=== PATIENT | female | born 1955 | race Hispanic/Latino ===

== ENCOUNTER → 2020-02-02 | Outpatient (CLI) | payer OTHER ==
[~2020-02-02] MED LIST: ENAL10TA18 PO; HYDR25TA PO; REGADENOSON 0.4 MG/5 ML PF SYG IVP SCH
== END | disposition home or self-care (01) ==
LOC: SHCH 07:41
PROVIDERS: ATTEND Internal Medicine Cardiovascular Disease
DX: I10 Essential (primary) hypertension (principal); I25.10 Atherosclerotic heart disease of native coronary artery without angina pectoris
CPT/HCPCS: 78452; 93017; 96374; A9500 ×2; J2785

== ENCOUNTER 2020-07-29 08:15 | Day surgery (SDC) | payer OTHER ==
[2020-07-27 14:18] VITALS: BP 184/76
[2020-07-27 15:29] LABS: APPEARANCE,URINE Clear (CLEAR); BILIRUBIN,URINE Negative (NEGATIVE); COLOR,URINE Yellow (YELLOW); GLUCOSE, URINE (UA) Negative (NEGATIVE); KETONES,URINE Negative (NEGATIVE); LEUKOCYTE ESTERASE ,URINE Negative (NEGATIVE); NITRATE,URINE Negative (NEGATIVE); OCCULT BLOOD,URINE Negative (NEGATIVE); PROTEIN,URINE Negative (NEGATIVE)
[2020-07-27 15:58] LABS: BASOPHILS % (AUTO) 0.5 % (0.0-5.0); EOSINOPHILS % (AUTO) 1.4 % (0.0-8.0); HEMATOCRIT 38.7 % (36-48); LYMPHOCYTES % (AUTO) 15.7 % (21.0-51.0); MEAN CORPUSCULAR HEMOGLOBIN 27.3 pg (27.0-33.0); MEAN CORPUSCULAR HGB CONC 31.3 g/dL (32.0-36.0); MEAN CORPUSCULAR VOLUME 87.2 fL (79-99); MONOCYTES % (AUTO) 6.5 % (3.0-13.0); NEUTROPHILS % (AUTO) 75.6 % (40.0-77.0); PLATELET COUNT (AUTO) 286 K/uL (130-400); RED BLOOD CELL COUNT(AUTO) 4.44 MIL/uL (4.00-5.50); RED CELL DISTRIBUTION WIDTH 13.2 % (11.0-15.5); WHITE BLOOD COUNT (AUTO) 8.6 K/uL (4.8-10.8)
[2020-07-27 16:08] LABS: CREATININE 0.7 mg/dL (0.5-1.5)
[2020-07-27 16:11] LABS: INR 1.01 (0.85-1.15)
[2020-07-27 16:12] LABS: PARTIAL THROMBOPLASTIN TIME 28.2 SEC (26.3-35.5)
[~2020-07-29] VITALS: Ht 129.5 cm; Wt 116.4 kg
[2020-07-29] VITALS (11 sets, daily range): BP systolic 115–157; BP diastolic 48–79
[~2020-07-29 08:15] MED LIST changes: +ASPI-1443 PO; -ENAL10TA18 PO; +FURO40TA5 PO; -HYDR25TA PO; +LISI30TA4 PO; +METF-444 PO; +METO-391 PO; +OMEG100014 PO; +POTA10TA11 PO; -REGADENOSON 0.4 MG/5 ML PF SYG IVP SCH; +SIMV-43 PO; +SODIUM CHLORIDE 0.9% 1000ML 1,000 ML IV ONE; +TERA2CAP4 PO
[2020-07-29] MEDS ORDERED: SODIUM BICARB 50MEQ 50ML VIAL 50 ML ONE (13:03)
[2020-07-29] MEDS ORDERED: HEPARIN SODIUM 1000UNIT/ML 10ML VIAL ONE (13:04)
[2020-07-29] MEDS ORDERED: MIDAZOLAM HCL 1 MG/ML 2ML VIAL ONE (13:04)
[2020-07-29] MEDS ORDERED: FENTANYL CITRATE PF 50 MCG/1 ML 2ML VIAL ONE (13:04)
[2020-07-29] MEDS ORDERED: NITROGLYCERIN 2 MG/VIAL VIAL IV ONE (13:04)
[2020-07-29] MEDS ORDERED: NICARDIPINE HCL 25 MG/10 ML ML IV ONE (13:04)
[2020-07-29] MEDS ORDERED: IOHEXOL 350 MG/ML 100ML INFUS..BTL IV ONE (13:04)
[2020-07-29] MEDS ORDERED: LIDOCAINE HCL 2% 20ML ONE (13:04)
[2020-07-29] MEDS ORDERED: LABETALOL 20 MG/4 ML DISP.SYRIN IV ONE (14:21)
[2020-07-29] MEDS ORDERED: IOHEXOL-350 50ML VIAL IV ONE (14:26)
[2020-07-29] MEDS ORDERED: LABETALOL HCL 5 MG/ML 20ML VIAL IV ONE (14:30)
[2020-07-29] MEDS ORDERED: ENALAPRILAT DIHYDRATE 1.25 MG/ML 2ML VIAL IVP ONE (14:38)
[2020-07-29] MEDS ORDERED: HYDRALAZINE HCL 20 MG/ML VIAL ONE (14:43)
[2020-07-29] MEDS ORDERED: DEXTROSE 50%-WATER 50 ML DISP.SYRIN IV PRN (14:45)
[2020-07-29] MEDS ORDERED: SODIUM CHLORIDE 0.9% 1000ML 1,000 ML IV SCH (14:45)
[2020-07-29] MEDS ORDERED: GLUCAGON 1MG KIT 1 MG ML IM PRN (14:45)
[2020-07-29] MEDS ORDERED: FUROSEMIDE 10 MG/ML 2ML VIAL ONE (14:51)
== END 2020-07-29 19:10 | disposition home or self-care (01) ==
LOC: DAH 08:15
PROVIDERS: ATTEND Internal Medicine Cardiovascular Disease
DX: I25.119 Atherosclerotic heart disease of native coronary artery with unspecified angina pectoris (principal); I27.20 Pulmonary hypertension, unspecified; I34.0 Nonrheumatic mitral (valve) insufficiency; I11.0 Hypertensive heart disease with heart failure; I50.22 Chronic systolic (congestive) heart failure; E66.9 Obesity, unspecified; E03.9 Hypothyroidism, unspecified; E78.5 Hyperlipidemia, unspecified; Z79.01 Long term (current) use of anticoagulants; Z79.84 Long term (current) use of oral hypoglycemic drugs; Z90.49 Acquired absence of other specified parts of digestive tract; Z90.710 Acquired absence of both cervix and uterus; Z98.891 History of uterine scar from previous surgery; Z82.49 Family history of ischemic heart disease and other diseases of the circulatory system; Z79.82 Long term (current) use of aspirin
CPT/HCPCS: 36415; 71045; 80048; 81003; 82948 ×2; 85025; 85610; 85730; 93005; 93460; A4215; A4216; A4221; A4222; A4223 ×3; A4335; A4554; A4606; A4615; A4663; C1760; C1769; C1894 ×5; J0360; J1644 ×2; J1940; J3490 ×6; J7030; Q9965 ×2; Q9967 ×2; 96360; 96361; J2250; J3010

== ENCOUNTER 2024-09-24 23:10 | Emergency (ER) | payer OTHER, MEDICARE ==
[~2024-09-24] VITALS: Ht 152.4 cm; Wt 2.3 kg
[~2024-09-24 23:10] MED LIST changes: +CHOL500045 PO; +CLIN-141 PO; +DAPA10TA PO; +FLUT9.9S NS; -FURO40TA5 PO; +IPRA3AMP24 NEB; +LEVO-70 PO; +LEVO5TAB13 PO; -LISI30TA4 PO; +MAGN400T56 PO; -METF-444 PO; -OMEG100014 PO; +OMEG1CAP31 PO; +PANT40TA54 PO; +POTA-183 PO; -POTA10TA11 PO; +ROSU20TA98 PO; -SIMV-43 PO; -SODIUM CHLORIDE 0.9% 1000ML 1,000 ML IV ONE; -TERA2CAP4 PO; +TORS20TA4 PO
[2024-09-24 23:52] LABS: IMMATURE GRANULOCYTE ABSOLUTE 0.02 K/uL (0-1); NUCLEATED RED BLOOD CELLS 0.0 % (0.0-0.19); PLATELET COUNT (AUTO) 287 K/uL (130-400); RED BLOOD CELL COUNT(AUTO) 4.43 MIL/uL (4.00-5.50); RED CELL DISTRIBUTION WIDTH 13.7 % (11.0-15.5); WHITE BLOOD COUNT (AUTO) 8.6 K/uL (4.8-10.8)
[2024-09-25] LABS: CREATININE 1.1 mg/dL (0.5-1.0); GLOMERULAR FILTR. RATE CALC 55.0 mL/min (>90); GLUCOSE,RANDOM 122.0 mg/dL (70-105); SODIUM SERUM 143.0 mmol/L (136-145); UREA NITROGEN, BLOOD 32.0 mg/dL (7-18)
[2024-09-25] MEDS: FAMOTIDINE 20MG VIAL IV ONE (00:02)
[2024-09-25] MEDS: 0.9%NACL 1000ML 1,000 ML IV ONE (00:02)
--- NOTE | 2024-09-25 00:54 | ERN ---
ED Note History of Present Illness Stated Complaint: C/O DIZZINESS,NAUSEA,DIARRHEA,HEADACHE Chief Complaint: Dizzy/Light Headed Time Seen by MD: 23:22 Dictation: This is a 69-year-old morbidly obese female with diabetes and other medical problems presented to the emergency room complaining of dizziness nausea diarrhea and generalized constitutional symptoms for the past couple of days. She denied any fevers chills or rigors. No history of any fall. No other family members are sick no hematemesis or melena no blurred vision facial droop or neurological signs and symptoms. Temperature 97.8 pulse 65 respirations 20 blood pressure 162/84 with a pulse oximetry of 94% on room air Chronic medical problems include diabetes mellitus, hypertension and hypercholesterolemia Allergies: Coded Allergies: No Known Drug Allergies (Unverified Allergy, Unknown, 08/06/14) Home Meds Active Scripts Clindamycin HCl (Clindamycin HCl) 300 Mg Capsule, 1 CAP PO BID for 5 Days, #10 CAP 0 Refills Prov:APRIL PHELPS MD 06/07/24 Levofloxacin (Levofloxacin) 500 Mg Tablet, 1 TAB PO DAILY for 5 Days, #5 TAB 0 Refills Prov:APRIL PHELPS MD 06/07/24 Ipratropium/Albuterol Sulfate (Iprat-Albut 0.5-3(2.5) mg/3 ml) 0.5 Mg-3 Mg (2.5 Mg Base)/3 Ml Ampul.neb, 1 VIAL NEB TID PRN for SHORTNESS OF BREATH for 10 Days, #90 ML 0 Refills Prov:APRIL PHELPS MD 06/07/24 Levocetirizine Dihydrochloride (Levocetirizine Dihydrochloride) 5 Mg Tablet, 5 MG PO DAILY PRN for ALLERGIES, #90 TAB Prov:APRIL PHELPS MD 11/09/23 [place]-3 Acid Ethyl Esters (Lovaza) 1 Gram Capsule, 1 GM PO DAILY, #90 CAP Prov:APRIL PHELPS MD 03/08/23 Torsemide (Torsemide) 20 Mg Tablet, 20 MG PO DAILY, #90 TAB Prov:APRIL PHELPS MD 03/08/23 Rosuvastatin Calcium (Rosuvastatin Calcium) 20 Mg Tablet, 20 MG PO DAILYDINNER, #90 TAB Prov:APRIL PHELPS MD 03/08/23 Pantoprazole Sodium (Pantoprazole Sodium) 40 Mg Tablet.dr, 40 MG PO DAILY PRN for GERD, #90 TAB Prov:APRIL PHELPS MD 03/08/23 Magnesium Oxide (Magnesium Oxide) 400 Mg (241.3 Mg Magnesium) Tablet, 400 MG PO DAILY, #90 TAB Prov:APRIL PHELPS MD 03/08/23 Fluticasone Propionate (Flonase Allergy Relief) 50 Mcg/Actuation [place].susp, 2 SPRAY NS DAILY PRN for ALLERGIES, #17 G Prov:APRIL PHELPS MD 03/08/23 Dapagliflozin Propanediol (Farxiga) 10 Mg Tablet, 10 MG PO DAILY, #90 TAB Prov:APRIL PHELPS MD 03/08/23 Cholecalciferol (Vitamin D3) (Vitamin D3) 125 Mcg (5000 Unit) Tablet, 125 MCG PO DAILY, #90 TAB Prov:APRIL PHELPS MD 03/08/23 Reported Medications Metoprolol Succinate (Metoprolol Succinate) 50 Mg Tab.er.24h, 50 MG PO BID, TAB 07/28/20 Aspirin (Aspirin EC) 81 Mg Tablet.dr, 81 MG PO DAILY, TAB 07/28/20 Potassium Chloride (Klor-Con 10) 10 Meq Tablet.er, 10 MEQ PO DAILY, TAB 07/28/20 Past Medical History Past Medical History: Diabetes-Type II, High Cholesterol, Hypertension Additional Past Medical Hx: CARDIAC DYSRHYTHMIAS, obesity, chronic lung disease/home oxygen dependence Surgical History: Hysterectomy, Cholecystectomy, Social History: Negative, Lives with family History: Not Applicable RN Note Reviewed/Agreed w/PFSH: Yes Review of System Dictation Constitutional: Negative for fever,chills, and weight loss positive for diz ziness Eyes: Negative for injury, pain,redness, and discharge ENT: Negative for injury,pain or swelling Cardiovascular: Negative for chest pain, palpitations, and edema Respiratory: Negative for shortness of breath, cough, and wheezing, Abdomen/GI: Positive for abdominal pain, nausea, vomiting, diarrhea, Back: Negative for injury and pain : Negative for injury, bleeding and discharge MS/Extremity: Negative for injury and deformity Skin: Negative for rash, and discoloration Neuro: Negative for headache, weakness, numbness, tingling, and seizure Psych: Negative for suicide ideation, homicidal ideation, and hallucinations Initial Vital Sign VS Vital Signs Date Time Temp Pulse Resp B/P (MAP) Pulse Ox O2 Delivery O2 Flow Rate FiO2 09/24/24 23:13 97.9 65 20 162/84 94 Room Air 09/24/24 23:45 0 21 Physical Exam Dictation General: awake, alert, NAD morbidly obese chronically ill-appearing appears much older than her stated age of 69 Head/Face: Normocephalic, atraumatic Eyes: PERRL, EOMI, vision at baseline ENT: oral cavity clear, TMs clear, no signs of infection Neck: Trachea midline, supple, no nuchal rigidity Cardiovascular: RRR, normal S1/S2, No MRGs, no JVD Respiratory: CTAB, no respiratory distress, No rales or wheezes Abdomen: Soft, non-tender, non-distended, normal bowel sounds, no guarding or rebound. Skin: Warm, dry, normal turgor, no rash MS/Extremity: Pulses equal, no cyanosis, neurovascular intact, FROM Neuro: COAx4, GCS 15, strength 5/5, CN 2-12 intact, normal cerebellar exam, normal gait, Psych: Normal behavior, mood, and affect normal Extremities-trace edema without any palpable cords, Homans sign is negative Results (Laboratory/Radiology) Laboratory/Radiology Laboratory Tests Test 09/24/24 23:40 White Blood Count 8.6 K/uL (4.8-10.8) Red Blood Count 4.43 MIL/uL (4.00-5.50) Hemoglobin 12.5 g/dL (12.0-16.0) Hematocrit 39.4 % (36-48) Mean Corpuscular Volume 88.9 fL (79-99) Mean Corpuscular Hemoglobin 28.2 pg (27.0-33.0) Mean Corpuscular Hemoglobin Concent 31.7 g/dL (32.0-36.0) L Red Cell Distribution Width 13.7 % (11.0-15.5) Platelet Count 287 K/uL (130-400) Mean Platelet Volume 10.4 fL (7.5-10.5) Immature Granulocyte % (Auto) 0.2 % (0-1) Neutrophils (%) (Auto) 66.8 % (40.0-77.0) Lymphocytes (%) (Auto) 22.6 % (21.0-51.0) Monocytes (%) (Auto) 7.7 % (3.0-13.0) Eosinophils (%) (Auto) 2.3 % (0.0-8.0) Basophils (%) (Auto) 0.4 % (0.0-5.0) Neutrophils # (Auto) 5.7 K/uL (1.8-7.7) Lymphocytes # (Auto) 1.9 K/uL (1.0-4.8) Monocytes # (Auto) 0.7 K/uL (0.1-1.0) Eosinophils # (Auto) 0.20 K/uL (0.00-0.70) Basophils # (Auto) 0.03 K/uL (0.00-0.20) Absolute Immature Granulocyte (auto 0.02 K/uL (0-1) Nucleated Red Blood Cells 0.0 % (0.0-0.19) Sodium Level 143 mmol/L (136-145) Potassium Level 4.2 mmol/L (3.5-5.1) Chloride Level 102 mmol/L (101-111) Carbon Dioxide Level 34 mmol/L (21-32) H Blood Urea Nitrogen 32 mg/dL (7-18) H Creatinine 1.1 mg/dL (0.5-1.0) H Glomerular Filtration Rate Calc 55 mL/min (>90) Random Glucose 122 mg/dL (70-105) H Total Calcium 9.0 mg/dL (8.5-10.1) Lipase 28 U/L (16-77) Labs Reviewed?: Yes EKG Comment: Twelve lead EKG done on 09/24/2024 at 11:41 p.m. showed a heart rate of 66, SD interval 177, QRS duration 112, QT/QTC 434/454 Impression normal sinus rhythm with a no acute STT wave changes noted. EKG rhythm strip shows a normal sinus rhythm with no acute changes. Interpreted by ER MD Dr. Sam ED Course ED Course Orders Procedure Category Date Status Time Cbc With Differential LAB 09/24/24 Complete 23:25 Urinalysis Profile LAB 09/24/24 Logged 23:25 12 Lead Ekg Tracing- EKG 09/24/24 Logged Technical 23:25 0.9%Nacl 1000ml (Ns PHA 09/24/24 Complete 1000ml) 23:30 Morphine 2mg Syg PHA 09/24/24 Complete (Morphine 2mg Syg) 23:30 Ondansetron 4mg Inj PHA 09/24/24 Complete (Zofran 4mg Inj) 23:30 Famotidine 20mg Vial PHA 09/24/24 Complete (Pepcid 20mg Vial) 23:30 Lipase LAB 09/24/24 Complete 23:25 Basic Metabolic Panel LAB 09/24/24 Complete 23:25 Current Medications Medications (Trade) Dose Ordered Sig/Sudhir Route PRN Reason Start Time Stop Time Status Last Admin Dose Admin Famotidine (Pepcid 20mg Vial) 20 mg ONCE ONCE IV 09/24/24 23:30 09/24/24 23:31 DC 09/25/24 00:02 Morphine Sulfate (morPHINE 2MG SYG) 2 mg ONCE ONCE IVP 09/24/24 23:30 09/24/24 23:31 DC 09/25/24 00:03 Ondansetron HCl (zoFRAN 4MG INJ) 4 mg ONCE ONCE IVP 09/24/24 23:30 09/24/24 23:31 DC 09/25/24 00:02 Sodium Chloride 1,000 ml @ 0 mls/hr ONCE ONCE IV 09/24/24 23:30 09/24/24 23:31 DC 09/25/24 00:02 Vital Signs Date Time Temp Pulse Resp B/P (MAP) Pulse Ox O2 Delivery O2 Flow Rate FiO2 09/24/24 23:45 98.2 79 17 147/55 92 Room Air* 0 21 09/24/24 23:13 97.9 65 20 162/84 94 Room Air We will perform diagnostic labs, advanced imaging and administer medications according to the patient's complaint. Once the results are available, will review and personally interpreted the labs to rule out any acute life- threatening emergency the trach require immediate intervention and treatment. I will then re-evaluate the patient after treatment and diagnostic exams have return to determine whether the patient requires any further testing, can safely be discharged home or need further admission to hospital for additional treatment and evaluation. Labs reviewed CBC is with a normal limits BNP 7 revealed BUN and creatinine are 32 and 1.1 Gentle hydration antiemetics given 12:49 a.m. upon re-evaluation patient's vital signs are much improved and she feels a whole lot better after hydration. She wants to be discharged to home and I updated her and daughter on the lab work and x-ray and they verbalized full understanding Medical Decision Making MDM MDM: Differential diagnosis: Indigestion, food poisoning, gastroenteritis, medication induced Rationale: Tests considered and ordered secondary to shared decision making include: Previous outside records reviewed: Old ER visits. Risk of complication and/or morbidity or mortality of patient management: None Medications-Per medication reconciliation Need for hospitalization: Patient does not meet criteria for hospitalization. Need for emergency major/minor surgery: No There are no social concerns with this patient. Prescription drug management Prescriptions will include symptomatic care Patient's prior external medical records from other ER visits were reviewed by me as indicated. Prior testing and results from previous visits were reviewed. Prior tests were taken into account with medical decision making and resource utilization, independent historian/historians were used to obtain complete medical history. I independently interpreted the test that were performed, results were reviewed by me and considered findings on radiology if ordered. Medical management and examination interpretation discussions were had by me with other qualified healthcare professionals as indicated for the patient's care. DX & DISP Disposition: Discharge Departure Impression: Primary Impression: Gastroenteritis Additional Impressions: Dehydration, TIM (acute kidney injury) Condition: Stable Additional Instructions: Patient and the caregiver have been informed of all the diagnostic tests and the imaging conducted during the today's visit to the emergency room and has verb alized understanding of the results I have personally reviewed and interpreted all diagnostic exams performed here in the ER today as well as the vital signs documented by the nursing staff. The patient is now being discharged to home and should follow up with the primary care physician or the specialist as directed by the ER staff. Follow-up with primary care provider in 1 to 2 days. Take medications as directed here in the emergency room. Okay to continue home medications unless otherwise discussed during your visit in the emergency room today. Return to your nearest emergency room if symptoms worsen or if there is no improvement. Call 911 if you need immediate assistance. Take Tylenol or Motrin [id number] as needed and if no contraindications are present. Increase oral hydration. A wound culture or urine culture was ordered here in the emergency room department please follow-up with primary care provider and advise them to get repeat ports from our facility. If you had any Adama wrap/splints that were applied here, please do not remove them until you see your primary care or specialty. Referrals: APRIL PHELPS MD (PCP) DANNY SAM MD Sep 25, 2024 00:54
[2024-09-25 00:59] VITALS: BP 142/62; PULSE 75; RESP 16; TEMP 98.1; O2SAT 95
--- NOTE | 2024-09-25 07:24 | EKG ---
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
== END 2024-09-25 01:17 | disposition home or self-care (01) ==
LOC: EDH 23:10
DX: K52.9 Noninfective gastroenteritis and colitis, unspecified (principal); E86.0 Dehydration; N17.9 Acute kidney failure, unspecified; E11.9 Type 2 diabetes mellitus without complications; E66.9 Obesity, unspecified; E78.00 Pure hypercholesterolemia, unspecified; I10 Essential (primary) hypertension; Z79.82 Long term (current) use of aspirin; Z79.84 Long term (current) use of oral hypoglycemic drugs; Z79.899 Other long term (current) drug therapy; Z90.49 Acquired absence of other specified parts of digestive tract; Z90.710 Acquired absence of both cervix and uterus; Z99.81 Dependence on supplemental oxygen
CPT/HCPCS: 99284; 96374; 96375; 80048; 83690; 85025; 36415; 93005; J3490; J2270; J2405